=== PATIENT | female | born 1995 | race African-American/Black ===

== ENCOUNTER 2019-02-15 08:37 | Emergency (ER) | payer OTHER ==
[2019-02-15] MEDS ORDERED: LIDOCAINE (PF) 10 MG/ML 5ML AMP SQ STA (09:08)
[2019-02-15] MEDS ORDERED: LIDOCAINE 1% INJ 10MG/ML (20 ML MDV) SQ ONE (09:10)
[2019-02-15] MEDS ORDERED: SULFAMETH-TMP DS STARTER PACK 2 TAB BTL PO STA (09:22)
[2019-02-15] MEDS ORDERED: ACET/COD 300 MG/30 MG STARTER PACK 6 TAB BTL PO STA (09:25)
--- NOTE | 2019-02-15 09:26 | ED ---
General Adult HPI - General Chief complaint: Skin/Abscess/Foreign Body Stated complaint: lump in rt arm pit Time Seen by Provider: 02/15/19 08:57 Source: patient, RN notes reviewed, old records reviewed Mode of arrival: ambulatory Limitations: no limitations - History of Present Illness Initial comments: Patient is a 23-year-old female who presents emergency department today for evaluation for a bump underneath her right axilla. Patient states that she has had no significant fevers or chills. She reports that she's had this bump intermittently for 6 years. She states they have be drained one time prior. Patient relates that she has had no history of resistant skin infections. She states she is not her the diagnosis of hidradenitis a particular. Patient that she has pain in her right axilla with walking when her arms rub over the area. - Related Data Previous Rx's Medication Instructions Recorded Sulfamethox-Tmp 800-160Mg [Bactrim 2 tab PO Q12HR #40 tab 02/15/19 DS 800-160 mg] Allergies Allergy/AdvReac Type Severity Reaction Status Date / Time No Known Allergies Allergy Verified 02/15/19 08:53 Review of Systems ROS Statement: Those systems with pertinent positive or pertinent negative responses have been documented in the HPI. ROS Other: All systems not noted in ROS Statement are negative. Past Medical History Past Medical History: No Reported History History of Any Multi-Drug Resistant Organisms: None Reported Past Surgical History: No Surgical Hx Reported Past Anesthesia/Blood Transfusion Reactions: No Reported Reaction Past Psychological History: No Psychological Hx Reported Smoking Status: Former smoker Past Alcohol Use History: Occasional Past Drug Use History: Marijuana General Exam - General Exam Comments Initial Comments: 23-year-old female. Alert and oriented. No significant distress. Limitations: no limitations Head exam: Present: atraumatic, normocephalic, normal inspection Eye exam: Present: normal appearance, PERRL, EOMI. Absent: scleral icterus, conjunctival injection, periorbital swelling ENT exam: Present: normal exam, mucous membranes moist Neck exam: Present: normal inspection. Absent: tenderness, meningismus, lymphadenopathy Respiratory exam: Present: normal lung sounds bilaterally. Absent: respiratory distress, wheezes, rales, rhonchi, stridor Cardiovascular Exam: Present: regular rate, normal rhythm, normal heart sounds. Absent: systolic murmur, diastolic murmur, rubs, gallop, clicks GI/Abdominal exam: Present: soft, normal bowel sounds. Absent: distended, tenderness, guarding, rebound, rigid Extremities exam: Present: normal inspection, full ROM, normal capillary refill, other (Patient has evidence of abscess over right axilla.). Absent: tenderness, pedal edema, joint swelling, calf tenderness Back exam: Present: normal inspection Neurological exam: Present: alert, oriented X3, CN II-XII intact Psychiatric exam: Present: normal affect, normal mood Skin exam: Present: warm, dry, intact, normal color. Absent: rash Course Vital Signs 02/15/19 08:45 Temperature 97.9 F Pulse Rate 75 Respiratory 16 Rate Blood Pressure 116/77 O2 Sat by Pulse 98 Oximetry Procedures - Incision & Drainage Site: upper extremity (R axilla ) Size (cm): 4 Anesthetic Used: lidocaine 1% Amount (mLs): 5 I&D Cleaning Method: Iodine Sterile Field Used?: Yes Scalpel Used: #11 I&D Drainage Obtained: Pus, Blood Packing: Iodoform Culture Obtained?: Yes Patient Tolerated Procedure: well, no complications Medical Decision Making - Medical Decision Making 23-year-old female persist today with right axilla abscess. She states she's had this happen before. This time Patient has worsening abscess. Patient was anesthetized with lidocaine and surgery was completed. Aerobic culture completed. Patient at this time and has small amount of packing placed. 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 Discussed close follow-up with PCP. We'll discharge the Patient for prescription for Bactrim. Disposition Clinical Impression: Abscess of right axilla, Axillary hidradenitis suppurativa Disposition: HOME SELF-CARE Condition: Good Instructions (If sedation given, give patient instructions): Abscess (ED) Additional Instructions: Patient advised to take antibiotic as prescribed. Apply warm compresses over that area. Return to emergency department if any alarming signs or symptoms occur. Prescriptions: Sulfamethox-Tmp 800-160Mg [Bactrim DS 800-160 mg] 2 tab PO Q12HR #40 tab Is patient prescribed a controlled substance at d/c from ED?: No Referrals: Valdemar Vo DO [Primary Care Provider] - 1-2 days Time of Disposition: 09:25
[2019-02-15 10:08] VITALS: BP 123/79; PULSE 67; RESP 19; TEMP 98.1
== END 2019-02-15 10:07 | disposition home or self-care (01) ==
LOC: EC 08:37
DX: L02.411 Cutaneous abscess of right axilla (principal); L73.2 Hidradenitis suppurativa; Z87.891 Personal history of nicotine dependence
CPT/HCPCS: 99283; 10060; J2001

== ENCOUNTER 2019-02-20 08:16 | Emergency (ER) | payer OTHER ==
[2019-02-20] MEDS ORDERED: LIDOCAINE 1%-EPI 1:100,000 20 ML VIAL SQ STA (08:27)
--- NOTE | 2019-02-20 08:41 | ED ---
General Adult HPI - General Chief complaint: Skin/Abscess/Foreign Body Stated complaint: recheck- lump in armpit Time Seen by Provider: 02/20/19 08:27 Source: patient Mode of arrival: ambulatory Limitations: no limitations - History of Present Illness Initial comments: Dictation was produced using [employer] dictation software. please excuse any grammatical, word or spelling errors. Chief Complaint: 23-year-old female past medical history of hidradenitis presents with persistent right axillary pain. History of Present Illness: She is a 23-year-old female she was seen here in emergency department 5 days ago for the same complaint. Patient was evaluated for axillary abscess. According to documentation attempt was made to I&D the wound however patient reports that no significant purulent fluid was removed. She was discharged with Bactrim on monotherapy. Patient states that her symptoms have not improved at all and she is here back in emergency department for relief. Denies any constitutional symptoms. Patient denies . The ROS documented in this emergency department record has been reviewed and con firmed by me. Those systems with pertinent positive or negative responses have been documented in the HPI. All other systems are other negative and/or noncontributory. PHYSICAL EXAM: General Impression: Alert and oriented x3, not in acute distress HEENT: Normocephalic atraumatic, extra-ocular movements intact, pupils equal and reactive to light bilaterally, mucous membranes moist. Cardiovascular: Heart regular rate and rhythm, S1&S2 audible, no murmurs, rubs or gallops Chest: Lungs clear to auscultation bilaterally, no rhonchi, no wheeze, no rales Abdomen: Bowel sounds present, abdomen soft, non-tender, non-distended, no organomegaly Musculoskeletal: Pulses present and equal in all extremities, no peripheral edema Motor: no focal deficits noted Neurological: CN II-XII grossly intact, no focal motor or sensory deficits noted Skin: Large fluctuant 3 x 3 cm mass in the right axilla Psych: Normal affect and mood ED course: Patient is 23-year-old female presents with right axillary abscess. Vital signs upon arrival shows findings within acceptable limits. [id number] bedside ultrasound was performed showing large fluid collection in the right axilla consistent with large subcutaneous axillary abscess. Incision and drainage was performed at bedside. Due to aspiration was performed with removal of large amounts of purulent fluid. 1 cm incision was made over the abscess with packing of half-inch iodoform gauze. Patient tolerated procedure well. Patient told to continue taking her Bactrim those recently prescribed. Patient also given Keflex 5 days. Patient told to follow up with primary care physician upon discharge. Return parameters discussed. Patient understandable and agreeable with disposition. - Related Data Previous Rx's Medication Instructions Recorded Sulfamethox-Tmp 800-160Mg [Bactrim 2 tab PO Q12HR #40 tab 02/15/19 DS 800-160 mg] Cephalexin [Keflex] 500 mg PO Q6HR 5 Days #20 cap 02/20/19 Allergies Allergy/AdvReac Type Severity Reaction Status Date / Time No Known Allergies Allergy Verified 02/20/19 08:41 Review of Systems ROS Statement: Those systems with pertinent positive or pertinent negative responses have been documented in the HPI. ROS Other: All systems not noted in ROS Statement are negative. Past Medical History Past Medical History: No Reported History History of Any Multi-Drug Resistant Organisms: None Reported Past Surgical History: No Surgical Hx Reported Past Anesthesia/Blood Transfusion Reactions: No Reported Reaction Past Psychological History: No Psychological Hx Reported Smoking Status: Former smoker Past Alcohol Use History: Occasional Past Drug Use History: Marijuana General Exam Limitations: no limitations Course Vital Signs 02/20/19 08:22 Temperature 97.9 F Pulse Rate 73 Respiratory 16 Rate Blood Pressure 109/73 O2 Sat by Pulse 98 Oximetry Procedures - Incision & Drainage Consent Obtained: verbal consent Site: other Anesthetic Used: lidocaine 1%, with epi I&D Cleaning Method: Alcohol Wipe Sterile Field Used?: No Scalpel Used: #11 Needle Aspiration Performed?: Yes Irrigation Performed?: No I&D Drainage Obtained: Pus Packing: Iodoform Culture Obtained?: No Patient Tolerated Procedure: well Disposition Clinical Impression: Abscess Disposition: HOME SELF-CARE Condition: Good Prescriptions: Cephalexin [Keflex] 500 mg PO Q6HR 5 Days #20 cap Is patient prescribed a controlled substance at d/c from ED?: No Referrals: Valdemar Vo DO [Primary Care Provider] - 1-2 days Time of Disposition: 09:26
[2019-02-20 10:17] VITALS: BP 104/60; PULSE 62; RESP 18; TEMP 98.6
== END 2019-02-20 10:15 | disposition home or self-care (01) ==
LOC: EC 08:16
DX: L02.411 Cutaneous abscess of right axilla (principal); Z87.891 Personal history of nicotine dependence
CPT/HCPCS: 10060; 10160; 99283

== ENCOUNTER 2019-03-23 12:15 | Emergency (ER) | payer OTHER ==
[2019-03-23] MEDS ORDERED: LIDOCAINE 1% INJ 10MG/ML (20 ML MDV) SQ ONE (13:10)
[2019-03-23] MEDS ORDERED: SODIUM CHLORIDE 0.9% IRRIG 1,000 ML BTL IRRIGATION ONE (13:10)
--- NOTE | 2019-03-23 13:27 | ED ---
General Adult HPI - General Chief complaint: Skin/Abscess/Foreign Body Stated complaint: Lump under arm Time Seen by Provider: 03/23/19 12:22 Source: patient Mode of arrival: ambulatory Limitations: no limitations - History of Present Illness Initial comments: Patient is a 23-year-old male presenting to emergency Department with chief complaint of right upper pain. Patient reports she noticed a lesion on the right arm. Approximately 1.5 months ago and has been to the emergency department twice to seek help. Patient reports the initial time she was only prescribed medication and the second time the lesion was diagnosed as an abscessed, drained and packed. Patient was also placed an antibiotics. Patient reports the abscess was packed on February 25. Patient reports the packing fell off a she did not return for repacking. Patient reports the pain is increased in severity over the past week and is now an aide every time she attempts any movem ent with her right upper extremity. Patient denies any drainage, erythema or skin discoloration. Patient reports taking [id number] analgesics minimal improvement. Patient denies any fever, chest pain or chest tightness headaches nausea or vomiting. Patient is concerned about a possible and wants to get tested before antibiotics are prescribed. - Related Data Previous Rx's Medication Instructions Recorded Ibuprofen [Motrin] 800 mg PO Q6HR #30 tab 03/23/19 Sulfamethox-Tmp 800-160Mg [Bactrim 1 each PO Q12HR #20 tab 03/23/19 Ds] Allergies Allergy/AdvReac Type Severity Reaction Status Date / Time No Known Allergies Allergy Verified 03/23/19 13:01 Review of Systems ROS Statement: Those systems with pertinent positive or pertinent negative responses have been documented in the HPI. ROS Other: All systems not noted in ROS Statement are negative. Past Medical History Past Medical History: No Reported History History of Any Multi-Drug Resistant Organisms: None Reported Past Surgical History: No Surgical Hx Reported Past Anesthesia/Blood Transfusion Reactions: No Reported Reaction Past Psychological History: No Psychological Hx Reported Smoking Status: Former smoker Past Alcohol Use History: Occasional Past Drug Use History: Marijuana General Exam Limitations: no limitations General appearance: alert, in no apparent distress Head exam: Present: atraumatic, normocephalic, normal inspection Eye exam: Present: normal appearance, PERRL, EOMI Pupils: Present: normal accommodation ENT exam: Present: normal exam, mucous membranes moist, normal external ear exam Neck exam: Present: normal inspection, full ROM Respiratory exam: Present: normal lung sounds bilaterally Cardiovascular Exam: Present: regular rate, normal rhythm, normal heart sounds Extremities exam: Present: full ROM, tenderness (Tenderness with palpation at the right axilla.), normal capillary refill, other (+2 dorsalis pedis and posterior tibialis bilaterally. +2 ulnar radial pulses bilaterally). Absent: normal inspection (Palpable mass noted on the right axilla measuring approximately 2 cm x 3 cm. With 1 cm in diameter of fluctuance. No drainage noted.) Back exam: Present: normal inspection, full ROM Neurological exam: Present: alert, oriented X3 Psychiatric exam: Present: normal affect, normal mood Skin exam: Present: warm, intact, normal color Course Vital Signs 03/23/19 03/23/19 03/23/19 12:16 13:39 16:00 Temperature 98.2 F 98.4 F Pulse Rate 70 76 Respiratory 18 16 16 Rate Blood Pressure 107/67 132/65 O2 Sat by Pulse 98 99 Oximetry Procedures - Incision & Drainage Consent Obtained: verbal consent Indication: Abscess Site: other (Right axilla) Size (cm): 3 Anesthetic Used: lidocaine 1% Amount (mLs): 10 I&D Cleaning Method: Betadine Sterile Field Used?: No Scalpel Used: #11 Needle Aspiration Performed?: No Irrigation Performed?: No I&D Drainage Obtained: Pus, Blood Packing: Plain Culture Obtained?: No Complications: pain Patient Tolerated Procedure: well Medical Decision Making - Medical Decision Making patient is a 23-year-old male presenting to emergency Department with a chief complaint of right armpit pain. Based on physical examination the patient appears to have an abscess in the right axilla. Bedside ultrasound reveals a fluid pocket collection measuring approximately 2 cm x 3.5 cm. the infected region was anesthetized using lidocaine. The abscess was drained using a #11 surgical lip. Blood and pus was removed. Plain packing was placed in the right axilla. Patient will be discharged with Bactrim. Strict return parameters were thoroughly discussed the patient was understanding and agreeable. Patient vised alternate between Tylenol and ibuprofen for pain control. Patient was to follow-up with dermatology considering this is the third time the patient has the abscess in the same region. Case discussed with physician. - Lab Data Lab Results 08/22/19 Range/Units 13:15 Urine HCG, Qual Not Detected (Not Detectd) Disposition Clinical Impression: Abscess of axilla, right Disposition: HOME SELF-CARE Condition: Stable Instructions (If sedation given, give patient instructions): Abscess (ED) Additional Instructions: Please take prescribed medication as directed. Please follow with primary care. Please return to emergency department if symptoms worsen. Prescriptions: Sulfamethox-Tmp 800-160Mg [Bactrim Ds] 1 each PO Q12HR #20 tab Ibuprofen [Motrin] 800 mg PO Q6HR #30 tab Is patient prescribed a controlled substance at d/c from ED?: No Referrals: Valdemar Vo DO [Primary Care Provider] - 1-2 days Dinorah Bruner MD [STAFF PHYSICIAN] - 1-2 days Time of Disposition: 15:43
[2019-03-23 13:41] VITALS: RESP 16
[2019-03-23] MEDS ORDERED: IBUPROFEN 800 MG TAB PO STA (15:53)
[2019-03-23 16:12] VITALS: BP 132/65; PULSE 76; TEMP 98.4
[2019-03-25 08:45] LABS: C. trachomatis,PCR Negative (Neg,Equiv); Chlamydia trachomatis Source Urine; N. gonorrhoeae,PCR Negative (Neg,Equiv); Neisseria Source Urine
== END 2019-03-23 16:00 | disposition home or self-care (01) ==
LOC: EC 12:15
DX: L02.411 Cutaneous abscess of right axilla (principal); Z87.891 Personal history of nicotine dependence
CPT/HCPCS: 81025; 87491; 87591; 99284; 10060; J2001

== ENCOUNTER 2019-06-07 08:25 | Emergency (ER) | payer OTHER ==
[2019-06-07 08:39] VITALS: BP 105/72; PULSE 66; RESP 18; TEMP 97.6
[2019-06-07] MEDS ORDERED: LIDOCAINE 1% INJ 10MG/ML (20 ML MDV) SQ ONE (08:48)
[2019-06-07] MEDS ORDERED: SULFAMETH-TMP DS STARTER PACK 2 TAB BTL PO STA (08:57)
--- NOTE | 2019-06-07 09:01 | ED ---
General Adult HPI - General Chief complaint: Skin/Abscess/Foreign Body Stated complaint: lump in lt armpit Source: patient, RN notes reviewed, old records reviewed Mode of arrival: ambulatory Limitations: no limitations - History of Present Illness Initial comments: Asians a 23-year-old female, she presents emergency Department stay of abscess in her left axilla. Patient reports 3-4 days. She reports she normally has these infections in her right axilla. Patient states that she has not followed with dermatology. She denies any other complaints including fevers or chills. - Related Data Previous Rx's Medication Instructions Recorded Ibuprofen [Motrin] 800 mg PO Q6HR #30 tab 03/23/19 Sulfamethox-Tmp 800-160Mg [Bactrim 1 each PO Q12HR #20 tab 03/23/19 Ds] Sulfamethox-Tmp 800-160Mg [Bactrim 1 tab PO Q12HR #20 tab 06/07/19 DS 800-160 mg] Allergies Allergy/AdvReac Type Severity Reaction Status Date / Time No Known Allergies Allergy Verified 06/07/19 08:35 Review of Systems ROS Statement: Those systems with pertinent positive or pertinent negative responses have been documented in the HPI. ROS Other: All systems not noted in ROS Statement are negative. Past Medical History Past Medical History: No Reported History History of Any Multi-Drug Resistant Organisms: None Reported Past Surgical History: No Surgical Hx Reported Past Anesthesia/Blood Transfusion Reactions: No Reported Reaction Past Psychological History: No Psychological Hx Reported Smoking Status: Former smoker Past Alcohol Use History: Occasional Past Drug Use History: None Reported General Exam - General Exam Comments Initial Comments: 23-year-old female. Alert and oriented. No distress. Limitations: no limitations General appearance: alert, in no apparent distress Head exam: Present: atraumatic, normocephalic, normal inspection Eye exam: Present: normal appearance ENT exam: Present: normal exam, mucous membranes moist Neck exam: Present: normal inspection. Absent: tenderness, meningismus, lymphadenopathy Respiratory exam: Present: normal lung sounds bilaterally. Absent: respiratory distress, wheezes, rales, rhonchi, stridor Cardiovascular Exam: Present: regular rate, normal rhythm, normal heart sounds. Absent: systolic murmur, diastolic murmur, rubs, gallop, clicks GI/Abdominal exam: Present: soft, normal bowel sounds. Absent: distended, tenderness, guarding, rebound, rigid Extremities exam: Present: normal inspection, full ROM, normal capillary refill, other (Patient has an abscess over the left axilla and 3 cm to 2 cm. ). Absent: tenderness, pedal edema, joint swelling, calf tenderness Back exam: Present: normal inspection Psychiatric exam: Present: normal affect, normal mood Course Vital Signs 06/07/19 08:35 Temperature 97.6 F Pulse Rate 66 Respiratory 18 Rate Blood Pressure 105/72 O2 Sat by Pulse 97 Oximetry Procedures - Incision & Drainage Site: upper extremity ( left Axilla) Size (cm): 2 Anesthetic Used: lidocaine 1% Amount (mLs): 3 I&D Cleaning Method: Iodine Sterile Field Used?: Yes Scalpel Used: #11 I&D Drainage Obtained: Pus, Blood Packing: Iodoform Culture Obtained?: Yes Patient Tolerated Procedure: well, no complications Medical Decision Making - Medical Decision Making 23-year-old female presents with an abscess of her left axilla. She has had them previously and her right. This was incised and drained, some purulent fluid and blood was removed the site. Discussed patient's likely having hydradenitis suppurativa she's had persistent abscesses bilateral axilla for the past few months. Patient advised follow up with dermatology. Patient will be started on Bactrim at this time and advised close follow-up with PCP. Questions are answered. Disposition Clinical Impression: Abscess of axilla, left Disposition: HOME SELF-CARE Condition: Good Instructions (If sedation given, give patient instructions): Abscess (ED), Abscess Incision and Drainage (ED) Additional Instructions: Please use medication as discussed. Please follow up with family doctor if symptoms have not improved over the next two days. Please return to the emergency room if your symptoms increase or worsen or for any other concerns. Prescriptions: Sulfamethox-Tmp 800-160Mg [Bactrim DS 800-160 mg] 1 tab PO Q12HR #20 tab Is patient prescribed a controlled substance at d/c from ED?: No Referrals: Valdemar Vo DO [Primary Care Provider] - 1-2 days Dinorah Bruner MD [STAFF PHYSICIAN] - 1-2 days Time of Disposition: 09:32
== END 2019-06-07 09:41 | disposition home or self-care (01) ==
LOC: EC 08:25
DX: L02.412 Cutaneous abscess of left axilla (principal); Z87.891 Personal history of nicotine dependence
CPT/HCPCS: 87070; 87205; 99284; 10060; J2001

== ENCOUNTER → 2019-08-08 | Outpatient (CLI) | payer OTHER ==
[2019-08-08 15:48] LABS: Chol/HDL Ratio 2.9; LDL Cholesterol,Calculated 98.2 mg/dL (0.0-131.0); VLDL Calculation 19.8 mg/dL (5.00-40.00)
[2019-08-08 18:23] LABS: Hemoglobin A1C 5.4 % (4.0-6.0)
[2019-08-08 20:33] LABS: HIV 1 AB Non-Reactive (Non-Reactive); HIV 2 AB Non-Reactive (Non-Reactive); HIV AB P24 Non-Reactive (Non-Reactive); HIV P24 AG Non-Reactive (Non-Reactive)
== END | disposition home or self-care (01) ==
LOC: LABWHC1 09:18
PROVIDERS: ATTEND Nurse Practitioner Family
DX: Z00.00 Encounter for general adult medical examination without abnormal findings (principal); Z11.3 Encounter for screening for infections with a predominantly sexual mode of transmission
CPT/HCPCS: 36415; 80061; 83036; 86780; 87390

== ENCOUNTER 2020-03-17 15:07 | Emergency (ER) | payer OTHER ==
[2020-03-17 15:16] VITALS: BP 113/73; PULSE 91; RESP 18; TEMP 98.9
[2020-03-17] MEDS ORDERED: LIDOCAINE 1% INJ 10MG/ML (20 ML MDV) SQ ONE (15:34)
[2020-03-17] MEDS ORDERED: ACET/COD 300 MG/30 MG STARTER PACK 6 TAB BTL PO STA (15:55)
[2020-03-17] MEDS ORDERED: SULFAMETH-TMP DS STARTER PACK 2 TAB BTL PO STA (15:55)
--- NOTE | 2020-03-17 15:55 | ED ---
General Adult HPI - General Chief complaint: Skin/Abscess/Foreign Body Stated complaint: Lump in armpit Time Seen by Provider: 03/17/20 15:18 Source: patient, RN notes reviewed Mode of arrival: ambulatory Limitations: no limitations - History of Present Illness Initial comments: Patient is a pleasant residual female presenting to emergency Department with complaints of lump left axillary region. Patient noticed this yesterday morning and symptoms worsen today. Patient has had similar episodes approximately 5 times previously and had drained every time. No fevers. Patient has noticed some redness. - Related Data Previous Rx's Medication Instructions Recorded Ibuprofen [Motrin] 800 mg PO Q6HR #30 tab 03/23/19 Sulfamethox-Tmp 800-160Mg [Bactrim 1 each PO Q12HR #20 tab 03/23/19 Ds] Sulfamethox-Tmp 800-160Mg [Bactrim 1 tab PO Q12HR #20 tab 06/07/19 DS 800-160 mg] Sulfamethox-Tmp 800-160Mg [Bactrim 2 each PO Q12HR #40 tab 03/17/20 DS 800-160 mg] Allergies Allergy/AdvReac Type Severity Reaction Status Date / Time No Known Allergies Allergy Verified 03/17/20 15:13 Review of Systems ROS Statement: Those systems with pertinent positive or pertinent negative responses have been documented in the HPI. ROS Other: All systems not noted in ROS Statement are negative. Constitutional: Denies: fever, chills Eyes: Denies: eye pain ENT: Denies: ear pain Respiratory: Denies: cough Cardiovascular: Denies: chest pain Endocrine: Denies: fatigue Gastrointestinal: Denies: abdominal pain Genitourinary: Denies: dysuria Musculoskeletal: Denies: back pain Skin: Reports: as per HPI Neurological: Denies: weakness Past Medical History Past Medical History: No Reported History Additional Past Medical History / Comment(s): cysts History of Any Multi-Drug Resistant Organisms: None Reported Past Surgical History: No Surgical Hx Reported Additional Past Surgical History / Comment(s): I&D of left and right armpits where cysts were present. Past Anesthesia/Blood Transfusion Reactions: No Reported Reaction Past Psychological History: No Psychological Hx Reported Smoking Status: Current every day smoker Past Alcohol Use History: Occasional Past Drug Use History: Marijuana General Exam Limitations: no limitations General appearance: alert, in no apparent distress Head exam: Present: normocephalic Eye exam: Present: normal appearance Neck exam: Present: normal inspection Respiratory exam: Present: normal lung sounds bilaterally Cardiovascular Exam: Present: regular rate, normal rhythm Extremities exam: Present: other (Left axillary with approximately 1 x 3 cm area of swelling and erythema. Minimal fluctuance) Neurological exam: Present: alert Psychiatric exam: Present: normal affect, normal mood Skin exam: Present: normal color Course Vital Signs 03/17/20 15:14 Temperature 98.9 F Pulse Rate 91 Respiratory 18 Rate Blood Pressure 113/73 O2 Sat by Pulse 99 Oximetry Procedures - Incision & Drainage Consent Obtained: verbal consent, written consent Site: other (Axilla, left) Anesthetic Used: lidocaine 1% Amount (mLs): 2 I&D Cleaning Method: Betadine Scalpel Used: #11 I&D Drainage Obtained: Other (Minimal drainage, bloody) Patient Tolerated Procedure: well, no complications Medical Decision Making - Medical Decision Making Patient was advised that procedure may not result in purulent drainage however patient would like procedure done is quite this. It is felt appropriate that there is still a chance of some drainage as well as leaving area opened for further drainage. Disposition Clinical Impression: Axillary hidradenitis suppurativa Disposition: HOME SELF-CARE Condition: Stable Instructions (If sedation given, give patient instructions): Abscess (ED), Abscess Incision and Drainage (DC) Additional Instructions: Prescription sent to pharmacy. Please follow-up with primary care physician in 2 days for recheck. Return for increased pain, swelling, fevers, bleeding, worsening symptoms or other concerns. Prescription is sent to your pharmacy. Prescriptions: Sulfamethox-Tmp 800-160Mg [Bactrim DS 800-160 mg] 2 each PO Q12HR #40 tab Is patient prescribed a controlled substance at d/c from ED?: No Referrals: Valdemar Vo DO [Primary Care Provider] - 1-2 days Time of Disposition: 15:54
== END 2020-03-17 16:03 | disposition home or self-care (01) ==
LOC: EC 15:07
DX: L73.2 Hidradenitis suppurativa (principal); F17.200 Nicotine dependence, unspecified, uncomplicated; Z98.890 Other specified postprocedural states
CPT/HCPCS: 10060; 99283; J2001

== ENCOUNTER 2021-05-06 11:57 | Emergency (ER) | payer OTHER ==
[2021-05-06 12:43] VITALS: TEMP 98.2
[2021-05-06] MEDS ORDERED: SODIUM CHLORIDE 0.9% 1,000 ML IV STA (14:47)
[2021-05-06] MEDS ORDERED: ONDANSETRON 4 MG/2 ML VIAL IVP STA (14:48)
[2021-05-06 15:42] LABS: Appearance,Urine Cloudy (Clear); Bacteria,Urine Many /hpf; Bilirubin,Urine Negative (Negative); Blood,Urine Trace (Negative); Color,Urine Yellow; Glucose,Urine (UA) Negative (Negative); Ketones,Urine Negative (Negative); Leukocyte Esterase,Urine Trace (Negative); Mucus,Urine Rare /hpf; Nitrite,Urine Positive (Negative); PH, Urine 5.5 (5.0-8.0); Protein,Urine Trace (Negative); RBC,Urine 4 /hpf (0-5); Specific Gravity,Urine 1.027 (1.001-1.035); Squamous Epithelial Cell,Urine 9 /hpf (0-4); WBC,Urine 14 /hpf (0-5)
[2021-05-06 15:52] LABS: Basophils % (A) 0 %; Eosinophils # (A) 0.1 k/uL (0-0.7); Eosinophils % (A) 1 %; HCT 32.9 % (34.0-46.0); HGB 10.9 gm/dL (11.4-16.0); Lymphocytes # (A) 0.9 k/uL (1.0-4.8); Lymphocytes % (A) 18 %; MCH 27.2 pg (25.0-35.0); MCV 82.4 fL (80.0-100.0); Mean Platelet Volume 7.8; Monocytes # (A) 0.2 k/uL (0-1.0); Monocytes % (A) 4 %; Neutrophils # (A) 3.6 k/uL (1.3-7.7); Neutrophils % (A) 75 %; Platelet Count 204 k/uL (150-450); RBC 3.99 m/uL (3.80-5.40); RDW 15.6 % (11.5-15.5); WBC 4.8 k/uL (3.8-10.6)
[2021-05-06 16:04] LABS: ALT 15 U/L (4-34); AST 22 U/L (14-36); African American GFR (CKD) >90 (>60 ml/min/1.73 sqM); Albumin 3.5 g/dL (3.5-5.0); Alkaline Phosphatase 50 U/L (38-126); Anion Gap 7 mmol/L; Blood Urea Nitrogen 8 mg/dL (7-17); Calcium 9.1 mg/dL (8.4-10.2); Carbon Dioxide 23 mmol/L (22-30); Chloride 107 mmol/L (98-107); Glucose 107 mg/dL (74-99); Non-African American GFR(CKD) >90 (>60 ml/min/1.73 sqM); Sodium 137 mmol/L (137-145); Total Bilirubin 0.3 mg/dL (0.2-1.3); Total Protein 6.9 g/dL (6.3-8.2)
[2021-05-06] MEDS ORDERED: cefTRIAXone IN SWFI 1,000 MG/10 ML SYRINGE IVP STA (16:05)
--- NOTE | 2021-05-06 16:08 | XR ---
EXAMINATION TYPE: XR chest 2V DATE OF EXAM: 05/06/2021 COMPARISON: None INDICATION: Short of breath,Covid 3 weeks prior TECHNIQUE: Frontal and lateral views of the chest are obtained. FINDINGS: The heart size is normal. The pulmonary vasculature is normal. The lungs are clear. IMPRESSION: 1. No acute pulmonary process.
--- NOTE | 2021-05-06 17:18 | CT ---
EXAMINATION TYPE: CT chest angio for PE DATE OF EXAM: 05/06/2021 COMPARISON: None HISTORY: shortness of breath, elevated d-dimer CT DLP: 383.9 mGycm Automated exposure control for dose reduction was used. CONTRAST: CT Chest for pulmonary embolism performed with with IV Contrast, patient injected with 100 mL of Isov ue 370. FINDINGS: LUNGS: The few scattered reticular/ground glass opacities .There is no suspicious nodules, pleural ef fusion or pneumothorax seen. The tracheobronchial tree is patent. There is mild bronchial wall thick ening. MEDIASTINUM: There is satisfactory enhancement of the pulmonary artery and its branches, there is no CT evidence for pulmonary embolism. There is enlarged right hilar lymph node measuring up to 1.5 cm s hort axis. There are other prominent but nonenlarged.. No pericardial effusion is seen. OTHER: There is a 2 x 1 cm hyperdense area in the left axilla that extends to the skin surface (seri es 4 image 28/116). There is a focal calcification in the right breast. IMPRESSION: 1. No pulmonary embolus. 2. A few scattered reticular/ground with opacities in the lungs and some mild bronchial wall thicken ing is favored to be on the basis of infectious/inflammatory etiology. 3. Enlarged and prominent hilar lymph nodes are likely reactive. 4. There is a 2 x 1 cm hyperdense area in the left axilla through the skin surface. There is a focal calcification in the right breast. Correlate clinically and with mammogram.
--- NOTE | 2021-05-06 17:23 | ED ---
SOB HPI - General Chief Complaint: Shortness of Breath Stated Complaint: SOB, nausea Time Seen by Provider: 05/06/21 14:18 Source: patient Mode of arrival: ambulatory Limitations: no limitations - History of Present Illness Initial Comments: Patient is a 25 year old female who presents emergency Department with reported nausea, vomiting and shortness of breath. Patient states that she was at work today on her break at 10:00 when she began having shortness of breath. She left work and ended up having an episode of vomiting. Denies fevers. No sick contacts similar symptoms. She did have Covid 3 weeks ago. States she's had chronic shortness of breath however it feels worse today. Her primary care doctor did place her on some inhalers. She denies any abdominal pain. No fevers. Denies concern for . No abdominal pain. No changes in her bowel or bladder habits. No other alleviating, presenting or modifying factors - Related Data Home Medications Medication Instructions Recorded Confirmed Albuterol Sulfate [Ventolin HFA] 2 puff INHALATION RT-Q4H PRN 05/06/21 05/06/21 Fluticasone Propionate [Flovent 2 puff INHALATION RT-BID 05/06/21 05/06/21 Hfa 110 mcg] Previous Rx's Medication Instructions Recorded Cephalexin [Keflex] 500 mg PO BID 1 Days #14 cap 05/06/21 Ondansetron Odt [Zofran Odt] 4 mg PO Q8HR PRN #10 tab 05/06/21 Allergies Allergy/AdvReac Type Severity Reaction Status Date / Time No Known Allergies Allergy Verified 05/06/21 16:22 Review of Systems ROS Statement: Those systems with pertinent positive or pertinent negative responses have been documented in the HPI. ROS Other: All systems not noted in ROS Statement are negative. Past Medical History Past Medical History: No Reported History Additional Past Medical History / Comment(s): cysts History of Any Multi-Drug Resistant Organisms: None Reported Past Surgical History: No Surgical Hx Reported Additional Past Surgical History / Comment(s): I&D of left and right armpits where cysts were present. Past Anesthesia/Blood Transfusion Reactions: No Reported Reaction Past Psychological History: No Psychological Hx Reported Smoking Status: Current every day smoker Past Alcohol Use History: Occasional Past Drug Use History: Marijuana General Exam Limitations: no limitations General appearance: alert, in no apparent distress Head exam: Present: atraumatic, normocephalic, normal inspection Eye exam: Present: normal appearance, PERRL, EOMI. Absent: scleral icterus, conjunctival injection, periorbital swelling ENT exam: Present: normal exam, mucous membranes moist Neck exam: Present: normal inspection. Absent: tenderness, meningismus, lymphadenopathy Respiratory exam: Present: normal lung sounds bilaterally. Absent: respiratory distress, wheezes, rales, rhonchi, stridor Cardiovascular Exam: Present: regular rate, normal rhythm, normal heart sounds. Absent: systolic murmur, diastolic murmur, rubs, gallop, clicks GI/Abdominal exam: Present: soft, normal bowel sounds. Absent: distended, tenderness, guarding, rebound, rigid Extremities exam: Present: normal inspection, full ROM, normal capillary refill. Absent: tenderness, pedal edema, joint swelling, calf tenderness Back exam: Present: normal inspection Neurological exam: Present: alert, oriented X3, CN II-XII intact Psychiatric exam: Present: normal affect, normal mood Skin exam: Present: warm, dry, intact, normal color. Absent: rash Course Vital Signs 05/06/21 05/06/21 12:38 18:26 Temperature 98.2 F 98.2 F Pulse Rate 91 90 Respiratory 20 16 Rate Blood Pressure 117/66 129/79 O2 Sat by Pulse 100 98 Oximetry Medical Decision Making - Medical Decision Making The patient is placed into room 7. There are history and physical exam was performed. IV is established and the patient was given a liter bolus of normal saline as well as formal grams of Zofran. Every studies were conducted. Patient provided a urine sample. D-dimer elevated at 1.29. UA positive for nitrates, many bacteria. She is given a dose of Rocephin. Chest x-ray demon strates no acute cardio primary process. She is sent back for a CT of her chest because of the elevated d-dimer. It demonstrates no pulmonary embolism. Few scattered reticular groundglass opacities. These results are discussed the patient. She is resting comfortably at this time. She will be discharged home on Keflex. She'll be given Zofran as needed for nausea. Follow up with her primary care doctor in 2-4 days. Return to the emergency room for any new or worsening symptoms. Patient is discharged home in stable condition - Lab Data Result diagrams: 05/06/21 15:38 05/06/21 15:38 Lab Results 05/06/21 05/06/21 05/06/21 Range/Units 15:28 15:28 15:38 WBC 4.8 (3.8-10.6) k/uL RBC 3.99 (3.80-5.40) m/uL Hgb 10.9 L (11.4-16.0) gm/dL Hct 32.9 L (34.0-46.0) % MCV 82.4 (80.0-100.0) fL MCH 27.2 (25.0-35.0) pg MCHC 33.0 (31.0-37.0) g/dL RDW 15.6 H (11.5-15.5) % Plt Count 204 (150-450) k/uL MPV 7.8 Neutrophils % 75 % Lymphocytes % 18 % Monocytes % 4 % Eosinophils % 1 % Basophils % 0 % Neutrophils # 3.6 (1.3-7.7) k/uL Lymphocytes # 0.9 L (1.0-4.8) k/uL Monocytes # 0.2 (0-1.0) k/uL Eosinophils # 0.1 (0-0.7) k/uL Basophils # 0.0 (0-0.2) k/uL D-Dimer (<0.60) mg/L FEU Sodium (137-145) mmol/L Potassium (3.5-5.1) mmol/L Chloride (98-107) mmol/L Carbon Dioxide (22-30) mmol/L Anion Gap mmol/L BUN (7-17) mg/dL Creatinine (0.52-1.04) mg/dL Est GFR (CKD-EPI)AfAm (>60 ml/min/1.73 sqM) Est GFR (CKD-EPI)NonAf (>60 ml/min/1.73 sqM) Glucose (74-99) mg/dL Plasma Lactic Acid [place] (0.7-2.0) mmol/L Calcium (8.4-10.2) mg/dL Total Bilirubin (0.2-1.3) mg/dL AST (14-36) U/L ALT (4-34) U/L Alkaline Phosphatase (38-126) U/L Total Protein (6.3-8.2) g/dL Albumin (3.5-5.0) g/dL Urine Color Yellow Urine Appearance Cloudy H (Clear) Urine pH 5.5 (5.0-8.0) Ur Specific Orange 1.027 (1.001-1.035) Urine Protein Trace H (Negative) Urine Glucose (UA) Negative (Negative) Urine Ketones Negative (Negative) Urine Blood Trace H (Negative) Urine Nitrite Positive H (Negative) Urine Bilirubin Negative (Negative) Urine Urobilinogen 2.0 (<2.0) mg/dL Ur Leukocyte Esterase Trace H (Negative) Urine RBC 4 (0-5) /hpf Urine WBC 14 H (0-5) /hpf Ur Squamous Epith Cells 9 H (0-4) /hpf Urine Bacteria Many H (None) /hpf Urine Mucus Rare H (None) /hpf Urine HCG, Qual Not Detected (Not Detectd) 05/06/21 05/06/21 05/06/21 Range/Units 15:38 15:38 16:42 WBC (3.8-10.6) k/uL RBC (3.80-5.40) m/uL Hgb (11.4-16.0) gm/dL Hct (34.0-46.0) % MCV (80.0-100.0) fL MCH (25.0-35.0) pg MCHC (31.0-37.0) g/dL RDW (11.5-15.5) % Plt Count (150-450) k/uL MPV Neutrophils % % Lymphocytes % % Monocytes % % Eosinophils % % Basophils % % Neutrophils # (1.3-7.7) k/uL Lymphocytes # (1.0-4.8) k/uL Monocytes # (0-1.0) k/uL Eosinophils # (0-0.7) k/uL Basophils # (0-0.2) k/uL D-Dimer 1.29 H (<0.60) mg/L FEU Sodium 137 (137-145) mmol/L Potassium 4.0 (3.5-5.1) mmol/L Chloride 107 (98-107) mmol/L Carbon Dioxide 23 (22-30) mmol/L Anion Gap 7 mmol/L BUN 8 (7-17) mg/dL Creatinine 0.42 L (0.52-1.04) mg/dL Est GFR (CKD-EPI)AfAm >90 (>60 ml/min/1.73 sqM) Est GFR (CKD-EPI)NonAf >90 (>60 ml/min/1.73 sqM) Glucose 107 H (74-99) mg/dL Plasma Lactic Acid [place] 1.1 (0.7-2.0) mmol/L Calcium 9.1 (8.4-10.2) mg/dL Total Bilirubin 0.3 (0.2-1.3) mg/dL AST 22 (14-36) U/L ALT 15 (4-34) U/L Alkaline Phosphatase 50 (38-126) U/L Total Protein 6.9 (6.3-8.2) g/dL Albumin 3.5 (3.5-5.0) g/dL Urine Color Urine Appearance (Clear) Urine pH (5.0-8.0) Ur Specific [place] (1.001-1.035) Urine Protein (Negative) Urine Glucose (UA) (Negative) Urine Ketones (Negative) Urine Blood (Negative) Urine Nitrite (Negative) Urine Bilirubin (Negative) Urine Urobilinogen (<2.0) mg/dL Ur Leukocyte Esterase (Negative) Urine RBC (0-5) /hpf Urine WBC (0-5) /hpf Ur Squamous Epith Cells (0-4) /hpf Urine Bacteria (None) /hpf Urine Mucus (None) /hpf Urine HCG, Qual (Not Detectd) - EKG Data EKG Comments: EKG demonstrates a sinus rhythm with ventricular rate 72. FL 146. QRS 72. QTC of 427. No acute ST segment elevations or depressions Disposition Clinical Impression: Nausea and vomiting, Acute UTI, Acute respiratory insufficiency Disposition: HOME SELF-CARE Condition: Stable Instructions (If sedation given, give patient instructions): Urinary Tract Infection in Women (ED) Additional Instructions: Please follow up with your primary care doctor in 2-4 days. Take the antibiotic as directed. Use of Zofran for nausea. Return to the emergency room for any new or worsening symptoms Prescriptions: Cephalexin [Keflex] 500 mg PO BID 1 Days #14 cap Ondansetron Odt [Zofran Odt] 4 mg PO Q8HR PRN #10 tab PRN Reason: Nausea Is patient prescribed a controlled substance at d/c from ED?: No Referrals: Valdemar Vo DO [Primary Care Provider] - 1-2 days Time of Disposition: 17:33
[2021-05-06 18:26] VITALS: BP 129/79; PULSE 90; RESP 16
== END 2021-05-06 18:26 | disposition home or self-care (01) ==
LOC: EC 11:57
DX: R06.89 Other abnormalities of breathing (principal); N39.0 Urinary tract infection, site not specified; R11.2 Nausea with vomiting, unspecified; F17.200 Nicotine dependence, unspecified, uncomplicated
CPT/HCPCS: 36415; 93005; 85379; 80053; 83605; 85025; 81001; 81025; 71046; 71275; 99284; 96374; 96375; J2405; J0696; Q9967

== ENCOUNTER 2021-05-14 07:15 | Emergency (ER) | payer OTHER ==
[2021-05-14 07:32] VITALS: BP 103/71; PULSE 71; RESP 19; TEMP 98.1
[2021-05-14] MEDS ORDERED: MORPHINE SULFATE 2 MG/ML SYRINGE IVP STA (07:35)
[2021-05-14] MEDS ORDERED: SODIUM CHLORIDE 0.9% 1,000 ML IV STA (07:35)
[2021-05-14] MEDS ORDERED: ONDANSETRON 4 MG/2 ML VIAL IVP STA (07:35)
[2021-05-14 08:17] LABS: Basophils % (A) 0 %; Eosinophils % (A) 1 %; HGB 12.1 gm/dL (11.4-16.0); Lymphocytes # (A) 1.6 k/uL (1.0-4.8); Lymphocytes % (A) 42 %; MCH 26.4 pg (25.0-35.0); MCHC 31.9 g/dL (31.0-37.0); MCV 82.7 fL (80.0-100.0); Mean Platelet Volume 7.4; Monocytes # (A) 0.3 k/uL (0-1.0); Monocytes % (A) 7 %; Neutrophils # (A) 1.9 k/uL (1.3-7.7); Neutrophils % (A) 48 %; Platelet Count 225 k/uL (150-450); RDW 15.1 % (11.5-15.5); WBC 3.9 k/uL (3.8-10.6)
[2021-05-14 08:34] LABS: ALT 13 U/L (4-34); AST 27 U/L (14-36); African American GFR (CKD) >90 (>60 ml/min/1.73 sqM); Albumin 4.1 g/dL (3.5-5.0); Alkaline Phosphatase 62 U/L (38-126); Amylase 76 U/L (30-110); Anion Gap 11 mmol/L; Blood Urea Nitrogen 10 mg/dL (7-17); Calcium 9.4 mg/dL (8.4-10.2); Carbon Dioxide 18 mmol/L (22-30); Chloride 109 mmol/L (98-107); Glucose 91 mg/dL (74-99); Lipase 70 U/L (23-300); Non-African American GFR(CKD) >90 (>60 ml/min/1.73 sqM); Sodium 138 mmol/L (137-145); Total Bilirubin 0.6 mg/dL (0.2-1.3); Total Protein 7.8 g/dL (6.3-8.2)
[2021-05-14 08:37] LABS: Appearance,Urine Clear (Clear); Bilirubin,Urine Negative (Negative); Blood,Urine Negative (Negative); Color,Urine Yellow; Glucose,Urine (UA) Negative (Negative); Ketones,Urine 2+ (Negative); Leukocyte Esterase,Urine Negative (Negative); Nitrite,Urine Negative (Negative); Protein,Urine Trace (Negative); Urobilinogen,Urine <2.0 mg/dL (<2.0)
[2021-05-14 08:49] LABS: Potassium 4.1 mmol/L (3.5-5.1)
--- NOTE | 2021-05-14 09:30 | CT ---
EXAMINATION TYPE: CT abdomen pelvis wo con DATE OF EXAM: 05/14/2021 COMPARISON: None HISTORY: Pelvic pain CT DLP: 825.9 mGycm Automated exposure control for dose reduction was used. TECHNIQUE: Helical acquisition of images from the lung bases through the pelvis. FINDINGS: Lack of intravenous contrast could compromise sensitivity of the exam. There is a tampon in place. Small umbilical hernia contains fat. LUNG BASES: No significant abnormality is appreciated. AORTA: No significant abnormality is appreciated. LIVER/GB: No significant abnormality is appreciated. PANCREAS: No significant abnormality is seen. SPLEEN: No significant abnormality is seen. ADRENALS: No significant abnormality is seen. KIDNEYS: No significant abnormality is seen. REPRODUCTIVE ORGANS: No significant abnormality is seen. URINARY BLADDER: No significant abnormality is seen. BOWEL: Retained fecal debris is present throughout the distribution of the colon. Some scattered phl eboliths are present within the pelvis. The appendix shows some luminal air and some mild high dense material, no inflammatory change and crosses midline to the left lower quadrant. FREE AIR: No Free Air is visible. ASCITES: None visible. PELVIC ADENOPATHY: None visualized. RETROPERITONEAL ADENOPATHY: No Retroperitoneal Adenopathy visible. OSSEOUS STRUCTURES: No significant abnormality is seen. IMPRESSION: NONCONTRAST EXAM. CORRELATE FOR FECAL STASIS. ADDITIONAL FINDINGS ABOVE.
--- NOTE | 2021-05-14 09:57 | ED ---
General Adult HPI - General Chief complaint: Shortness of Breath Stated complaint: SOB Time Seen by Provider: 05/14/21 07:23 Source: patient, EMS, RN notes reviewed Mode of arrival: EMS Limitations: no limitations - History of Present Illness Initial comments: Patient is a 25-year-old female that presents to the emergency department complaining of generalized abdominal pain or discomfort. She arrived via EMS complaining of shortness of breath resolved. Nurse reported upon triage that patient started complaining of abdominal pain, patient was 100% on room air. Patient didn't appear to be mildly uncomfortable. She denied being . Her she denied any alleviating or aggravating factors. She does been going on constantly since this morning. She was otherwise well. She denied chest pain shortness of breath headache nausea vomiting diarrhea constipation fever fatigue chills. - Related Data Home Medications Medication Instructions Recorded Confirmed Albuterol Sulfate [Ventolin HFA] 2 puff INHALATION RT-Q4H PRN 05/06/21 05/06/21 Fluticasone Propionate [Flovent 2 puff INHALATION RT-BID 05/06/21 05/06/21 Hfa 110 mcg] Previous Rx's Medication Instructions Recorded Cephalexin [Keflex] 500 mg PO BID 1 Days #14 cap 05/06/21 Ondansetron Odt [Zofran Odt] 4 mg PO Q8HR PRN #10 tab 05/06/21 Allergies Allergy/AdvReac Type Severity Reaction Status Date / Time No Known Allergies Allergy Verified 05/14/21 09:58 Review of Systems ROS Statement: Those systems with pertinent positive or pertinent negative responses have been documented in the HPI. ROS Other: All systems not noted in ROS Statement are negative. Past Medical History Past Medical History: No Reported History Additional Past Medical History / Comment(s): cysts History of Any Multi-Drug Resistant Organisms: None Reported Past Surgical History: No Surgical Hx Reported Additional Past Surgical History / Comment(s): I&D of left and right armpits where cysts were present. Past Anesthesia/Blood Transfusion Reactions: No Reported Reaction Past Psychological History: No Psychological Hx Reported Smoking Status: Current every day smoker Past Alcohol Use History: Occasional Past Drug Use History: Marijuana General Exam Limitations: no limitations General appearance: alert, in no apparent distress, obese Head exam: Present: atraumatic, normocephalic, normal inspection Eye exam: Present: normal appearance, PERRL, EOMI. Absent: scleral icterus, conjunctival injection, periorbital swelling ENT exam: Present: normal exam, mucous membranes moist Neck exam: Present: normal inspection Respiratory exam: Present: normal lung sounds bilaterally. Absent: respiratory distress, wheezes, rales, rhonchi, stridor Cardiovascular Exam: Present: regular rate, normal rhythm, normal heart sounds. Absent: systolic murmur, diastolic murmur, rubs, gallop, clicks GI/Abdominal exam: Present: soft, tenderness (All quadrants, no point tenderness.), normal bowel sounds. Absent: distended, guarding, rebound, rigid Extremities exam: Present: normal inspection, full ROM, normal capillary refill. Absent: tenderness, pedal edema, joint swelling, calf tenderness Neurological exam: Present: alert, oriented X3 Psychiatric exam: Present: normal affect, normal mood Skin exam: Present: warm, dry, intact, normal color. Absent: rash Course Vital Signs 05/14/21 07:24 Temperature 98.1 F Pulse Rate 71 Respiratory 19 Rate Blood Pressure 103/71 O2 Sat by Pulse 100 Oximetry Medical Decision Making - Medical Decision Making 25-year-old female complaining of generalized abdominal pain and shortness of breath, 100% on room air. Labs, CT the abdomen and pelvis, 1 L normal saline, 4 mg Zofran, 4 g morphine ordered. Labs unremarkable and within normal limits. CT abdomen pelvis shows fecal stasis throughout the colon. Patient most likely has constipation. Case discussed with Dr. Maki, patient discharge home with follow-up to primary care. - Lab Data Result diagrams: 05/14/21 08:07 05/14/21 08:07 Lab Results 05/14/21 05/14/21 05/14/21 Range/Units 08:07 08:07 08:07 WBC 3.9 (3.8-10.6) k/uL RBC 4.60 (3.80-5.40) m/uL Hgb 12.1 (11.4-16.0) gm/dL Hct 38.0 (34.0-46.0) % MCV 82.7 (80.0-100.0) fL MCH 26.4 (25.0-35.0) pg MCHC 31.9 (31.0-37.0) g/dL RDW 15.1 (11.5-15.5) % Plt Count 225 (150-450) k/uL MPV 7.4 Neutrophils % 48 % Lymphocytes % 42 % Monocytes % 7 % Eosinophils % 1 % Basophils % 0 % Neutrophils # 1.9 (1.3-7.7) k/uL Lymphocytes # 1.6 (1.0-4.8) k/uL Monocytes # 0.3 (0-1.0) k/uL Eosinophils # 0.0 (0-0.7) k/uL Basophils # 0.0 (0-0.2) k/uL Sodium (137-145) mmol/L Potassium (3.5-5.1) mmol/L Chloride (98-107) mmol/L Carbon Dioxide (22-30) mmol/L Anion Gap mmol/L BUN (7-17) mg/dL Creatinine (0.52-1.04) mg/dL Est GFR (CKD-EPI)AfAm (>60 ml/min/1.73 sqM) Est GFR (CKD-EPI)NonAf (>60 ml/min/1.73 sqM) Glucose (74-99) mg/dL Calcium (8.4-10.2) mg/dL Total Bilirubin (0.2-1.3) mg/dL AST (14-36) U/L ALT (4-34) U/L Alkaline Phosphatase (38-126) U/L Total Protein (6.3-8.2) g/dL Albumin (3.5-5.0) g/dL Amylase (30-110) U/L Lipase (23-300) U/L Urine Color Yellow Urine Appearance Clear (Clear) Urine pH 6.0 (5.0-8.0) Ur Specific [place] 1.030 (1.001-1.035) Urine Protein Trace H (Negative) Urine Glucose (UA) Negative (Negative) Urine Ketones 2+ H (Negative) Urine Blood Negative (Negative) Urine Nitrite Negative (Negative) Urine Bilirubin Negative (Negative) Urine Urobilinogen <2.0 (<2.0) mg/dL Ur Leukocyte Esterase Negative (Negative) Urine HCG, Qual Not Detected (Not Detectd) 05/14/21 Range/Units 08:07 WBC (3.8-10.6) k/uL RBC (3.80-5.40) m/uL Hgb (11.4-16.0) gm/dL Hct (34.0-46.0) % MCV (80.0-100.0) fL MCH (25.0-35.0) pg MCHC (31.0-37.0) g/dL RDW (11.5-15.5) % Plt Count (150-450) k/uL MPV Neutrophils % % Lymphocytes % % Monocytes % % Eosinophils % % Basophils % % Neutrophils # (1.3-7.7) k/uL Lymphocytes # (1.0-4.8) k/uL Monocytes # (0-1.0) k/uL Eosinophils # (0-0.7) k/uL Basophils # (0-0.2) k/uL Sodium 138 (137-145) mmol/L Potassium 4.1 (3.5-5.1) mmol/L Chloride 109 H (98-107) mmol/L Carbon Dioxide 18 L (22-30) mmol/L Anion Gap 11 mmol/L BUN 10 (7-17) mg/dL Creatinine 0.47 L (0.52-1.04) mg/dL Est GFR (CKD-EPI)AfAm >90 (>60 ml/min/1.73 sqM) Est GFR (CKD-EPI)NonAf >90 (>60 ml/min/1.73 sqM) Glucose 91 (74-99) mg/dL Calcium 9.4 (8.4-10.2) mg/dL Total Bilirubin 0.6 (0.2-1.3) mg/dL AST 27 (14-36) U/L ALT 13 (4-34) U/L Alkaline Phosphatase 62 (38-126) U/L Total Protein 7.8 (6.3-8.2) g/dL Albumin 4.1 (3.5-5.0) g/dL Amylase 76 (30-110) U/L Lipase 70 (23-300) U/L Urine Color Urine Appearance (Clear) Urine pH (5.0-8.0) Ur Specific [place] (1.001-1.035) Urine Protein (Negative) Urine Glucose (UA) (Negative) Urine Ketones (Negative) Urine Blood (Negative) Urine Nitrite (Negative) Urine Bilirubin (Negative) Urine Urobilinogen (<2.0) mg/dL Ur Leukocyte Esterase (Negative) Urine HCG, Qual (Not Detectd) - Radiology Data Radiology results: report reviewed, image reviewed CT of the abdomen and pelvis: Retained fecal debris is present at the distribution: Some scattered phleboliths are present within the pelvis. The appendix shows some luminal air in some mild high dense material no inflammatory change and crosses midline to the left lower quadrant. Disposition Clinical Impression: Abdominal pain, Constipation Disposition: HOME SELF-CARE Condition: Stable Instructions (If sedation given, give patient instructions): Abdominal Pain (ED) Additional Instructions: Please return to the Emergency Department if symptoms worsen or any other c oncerns. Follow-up with primary care 1-2 days. Increase oral fluids, increase dietary fiber. Is patient prescribed a controlled substance at d/c from ED?: No Referrals: Valdemar Vo DO [Primary Care Provider] - 1-2 days Time of Disposition: 10:09
== END 2021-05-14 11:02 | disposition home or self-care (01) ==
LOC: EC 07:15
DX: K59.00 Constipation, unspecified (principal); R06.02 Shortness of breath; F17.200 Nicotine dependence, unspecified, uncomplicated
CPT/HCPCS: 36415; 80053; 82150; 83690; 85025; 81003; 81025; 74176; 99285; 96374; 96375; 96361; J2405; J2270

== ENCOUNTER → 2021-05-30 | Outpatient (CLI) | payer OTHER ==
--- NOTE | 2021-05-30 11:38 | MM ---
Reason for exam: clinical finding. Baseline mammogram. History: Took hormonal contraceptives for 6 years beginning at age 14. Physical Findings: Nurse did not find any significant physical abnormalities on exam. [facility] Diagnostic Mammo w CAD EDWIN Bilateral CC and MLO view(s) were taken. No prior studies available for comparison. The breast tissue is heterogeneously dense. This may lower the sensitivity of mammography. There is no discrete abnormality. These results were verbally communicated with the patient and result sheet given to the patient on 05/30/21. ASSESSMENT: Benign, BI-RAD 2 RECOMMENDATION: Routine screening mammogram of both breasts at age 33. Manage patient on a clinical basis.
== END | disposition home or self-care (01) ==
LOC: RADMAMWWP 08:44
PROVIDERS: ATTEND Family Medicine
DX: N64.89 Other specified disorders of breast (principal)
CPT/HCPCS: 77066

== ENCOUNTER 2021-07-18 02:22 | Emergency (ER) | payer OTHER ==
[2021-07-18 02:30] VITALS: BP 111/61; PULSE 70; RESP 18; TEMP 97.9
--- NOTE | 2021-07-18 03:19 | ED ---
Extremity Problem HPI - General Chief complaint: Extremity Problem,Nontraumatic Stated complaint: right arm numbness, I[facility] Time Seen by Provider: 07/18/21 02:23 Source: patient, RN notes reviewed, old records reviewed Mode of arrival: ambulatory Limitations: no limitations - History of Present Illness Initial comments: This is a 26-year-old female to the emergency department today. She presents today for evaluation regards to right wrist pain special with movement wakes up at night is when she notices it to be the worse. Patient does do repetitive motions of late with her right hand and left hands well. She is right-handed MD Complaint: extremity pain, extremity swelling, joint pain (Right wrist) -: days(s) Location: right, upper extremity History of Same: No -: Yes arthralgia Radiation: proximal Severity scale (1-10): 6 Quality: stabbing, sharp Consistency: intermittent Improves with: nothing Worsens with: nothing Associated Symptoms: denies other symptoms - Related Data Home Medications Medication Instructions Recorded Confirmed Albuterol Sulfate [Ventolin HFA] 2 puff INHALATION RT-Q4H PRN 05/06/21 05/14/21 Allergies Allergy/AdvReac Type Severity Reaction Status Date / Time latex Allergy Unknown Verified 07/18/21 02:31 Review of Systems ROS Statement: Those systems with pertinent positive or pertinent negative responses have been documented in the HPI. ROS Other: All systems not noted in ROS Statement are negative. Past Medical History Past Medical History: No Reported History Additional Past Medical History / Comment(s): cysts History of Any Multi-Drug Resistant Organisms: None Reported Past Surgical History: No Surgical Hx Reported Additional Past Surgical History / Comment(s): I&D of left and right armpits where cysts were present. Past Anesthesia/Blood Transfusion Reactions: No Reported Reaction Past Psychological History: No Psychological Hx Reported Smoking Status: Current every day smoker Past Alcohol Use History: Occasional Past Drug Use History: Marijuana General Exam Limitations: no limitations General appearance: alert, in no apparent distress Head exam: Present: atraumatic, normocephalic, normal inspection Eye exam: Present: normal appearance, PERRL, EOMI. Absent: scleral icterus, conjunctival injection, periorbital swelling ENT exam: Present: normal exam, mucous membranes moist Neck exam: Present: normal inspection. Absent: tenderness, meningismus, lymphadenopathy Respiratory exam: Present: normal lung sounds bilaterally. Absent: respiratory distress, wheezes, rales, rhonchi, stridor Cardiovascular Exam: Present: regular rate, normal rhythm, normal heart sounds. Absent: systolic murmur, diastolic murmur, rubs, gallop, clicks GI/Abdominal exam: Present: soft, normal bowel sounds. Absent: distended, tenderness, guarding, rebound, rigid Extremities exam: Present: normal inspection, full ROM, normal capillary refill, other (Mild right wrist tenderness to movement, positive now signed positive Phalen). Absent: tenderness, pedal edema, joint swelling, calf tenderness Back exam: Present: normal inspection Neurological exam: Present: alert, oriented X3, CN II-XII intact Psychiatric exam: Present: normal affect, normal mood Skin exam: Present: warm, dry, intact, normal color. Absent: rash Course Vital Signs 07/18/21 02:27 Temperature 97.9 F Pulse Rate 70 Respiratory 18 Rate Blood Pressure 111/61 O2 Sat by Pulse 99 Oximetry - Reevaluation(s) Reevaluation #1: 07/18/21 03:16 Medical record is reviewed Reevaluation #2: 07/18/21 03:16 Patient no distress here in the emergency department Reevaluation #3: 07/18/21 03:16 Patient informed results and questions answered Medical Decision Making - Medical Decision Making 26 Female with normal signs and symptoms of carpal tunnel the right wrist mild. Patient has no atrophy, encouraged to wear splint at night return to work with anti-inflammatories Disposition Clinical Impression: Right carpal tunnel syndrome Disposition: HOME SELF-CARE Condition: Good Instructions (If sedation given, give patient instructions): Paresthesia (ED) Is patient prescribed a controlled substance at d/c from ED?: No Referrals: Valdemar Vo DO [Primary Care Provider] - 1-2 days
== END 2021-07-18 03:32 | disposition home or self-care (01) ==
LOC: EC 02:22
DX: G56.01 Carpal tunnel syndrome, right upper limb (principal); F17.200 Nicotine dependence, unspecified, uncomplicated; Z91.040 Latex allergy status
CPT/HCPCS: 99283

== ENCOUNTER 2022-04-02 16:07 | Emergency (ER) | payer OTHER ==
[2022-04-02 16:18] VITALS: BP 116/71; PULSE 96; RESP 16; TEMP 98.6
--- NOTE | 2022-04-02 18:38 | ED ---
URI HPI - General Chief Complaint: Upper Respiratory Infection Stated Complaint: coughing, drainage Time Seen by Provider: 04/02/22 18:21 Source: patient Mode of arrival: ambulatory - History of Present Illness Initial Comments: Patient is a 26-year-old female presenting with chief complaint of cough and congestion. Patient states that 4 days ago she began having fatigue, body aches, congestion. She states that yesterday she felt better and was able to go to work. Patient states that when she woke up this morning she felt worse and presented for Covid testing. She denies any chest pain, shortness of breath, fever, chills, nausea, vomiting, abdominal pain, sore throat, dysphasia, headache, neck pain or stiffness. - Related Data Home Medications Medication Instructions Recorded Confirmed Albuterol Sulfate [Ventolin HFA] 2 puff INHALATION RT-Q4H PRN 05/06/21 05/14/21 Allergies Allergy/AdvReac Type Severity Reaction Status Date / Time latex Allergy Unknown Verified 04/02/22 16:18 Review of Systems ROS Statement: Those systems with pertinent positive or pertinent negative responses have been documented in the HPI. ROS Other: All systems not noted in ROS Statement are negative. Past Medical History Past Medical History: No Reported History Additional Past Medical History / Comment(s): cysts History of Any Multi-Drug Resistant Organisms: None Reported Past Surgical History: No Surgical Hx Reported Additional Past Surgical History / Comment(s): I&D of left and right armpits where cysts were present. Past Anesthesia/Blood Transfusion Reactions: No Reported Reaction Past Psychological History: No Psychological Hx Reported Smoking Status: Current every day smoker Past Alcohol Use History: Occasional Past Drug Use History: Marijuana General Exam Limitations: no limitations Head exam: Present: atraumatic, normocephalic, normal inspection Eye exam: Present: normal appearance, EOMI. Absent: scleral icterus, periorbital swelling ENT exam: Present: normal exam Neck exam: Present: normal inspection, full ROM Respiratory exam: Present: normal lung sounds bilaterally. Absent: respiratory distress, wheezes, rales, rhonchi, stridor Cardiovascular Exam: Present: regular rate, normal rhythm, normal heart sounds. Absent: systolic murmur, diastolic murmur, rubs, gallop, clicks Neurological exam: Present: alert, oriented X3, CN II-XII intact Psychiatric exam: Present: normal affect, normal mood Skin exam: Present: warm, dry, intact, normal color. Absent: rash Course Vital Signs 04/02/22 16:12 Temperature 98.6 F Pulse Rate 96 Respiratory 16 Rate Blood Pressure 116/71 O2 Sat by Pulse 99 Oximetry Medical Decision Making - Medical Decision Making Patient is a 18-year-old female presenting with chief complaint of fatigue, cough, congestion. Patient symptoms started 4 days ago, however yesterday she felt much better and today she woke up with worsening symptoms. Examination is unremarkable. Patient tested positive for Covid. I discussed quarantine guidelines and supportive treatment. Follow-up with PCP. Report back to ER with any new or worsening symptoms. Discussed return parameters and answered all questions. Patient conveyed verbal understanding and agreed to the plan. I discussed this case with my attending Dr. Church. - Lab Data Lab Results 04/02/22 Range/Units 16:22 Coronavirus (PCR) Detected A (Not Detectd) Disposition Clinical Impression: COVID Disposition: HOME SELF-CARE Condition: Good Instructions (If sedation given, give patient instructions): COVID-19 (Coronavirus Disease 2019) (ED), How to Recover from COVID-19 at Home (ED) Additional Instructions: Quarantine for 5 days starting from the first if symptoms. If after 5 days you are symptom and fever free, wear a well fitted mask while in public at all times for an additional 5 days. If you are not symptom or fever free, continue your quarantine until you're without symptoms or fever for 24 hours. Take Motrin and Tylenol as needed for fever and pain control. Take Mucinex as needed. Report back to ER if any new or worsening symptoms occur. Follow-up with PCP. Is patient prescribed a controlled substance at d/c from ED?: No Referrals: Valdemar Vo DO [Primary Care Provider] - 1-2 days Time of Disposition: 18:38
== END 2022-04-02 19:01 | disposition home or self-care (01) ==
LOC: EC 16:07
DX: U07.1 COVID-19 (principal); F17.200 Nicotine dependence, unspecified, uncomplicated; Z91.040 Latex allergy status
CPT/HCPCS: 87635; 99284

== ENCOUNTER 2022-08-01 21:43 | Emergency (ER) | payer OTHER ==
[2022-08-01 22:20] VITALS: BP 112/73; PULSE 94; RESP 18; TEMP 98.8
[2022-08-02] MEDS ORDERED: DEXAMETHASONE SOD PHOSPHATE 10 MG/ML 1 ML VIAL PO STA (00:16)
--- NOTE | 2022-08-02 00:24 | ED ---
General Adult HPI - General Chief complaint: Upper Respiratory Infection Stated complaint: congestion,eye irritation Time Seen by Provider: 08/01/22 23:54 Source: patient, RN notes reviewed Mode of arrival: ambulatory Limitations: no limitations - History of Present Illness Initial comments: 27-year-old female presents to the emergency Department with complaints of upper respiratory infection symptoms x one week. States symptoms have worsened over the past 2 days and include sore throat, nasal congestion, and sinus pressure. Reports mild cough. Has not taken anything to treat her symptoms. No know sick contacts. Denies fever, chills, dizziness, chest pain, shortness of breath, abdominal pain, nausea, vomiting, diarrhea, dysuria, or appetite changes. - Related Data Home Medications Medication Instructions Recorded Confirmed Albuterol Sulfate [Ventolin HFA] 2 puff INHALATION RT-Q4H PRN 05/06/21 05/14/21 Previous Rx's Medication Instructions Recorded Amoxic-Pot Clav 875-125Mg 1 tab PO BID 7 Days #14 tab 08/02/22 [Augmentin 875-125] Fluticasone Nasal [place] [Flonase 2 spray EA NOSTRIL DAILY 5 Days 08/02/22 Nasal [place]] #16 gm Amoxicillin 875 mg PO Q12HR #20 tablet 08/03/22 predniSONE [Deltasone] 20 mg PO BID #10 tab 08/03/22 Allergies Allergy/AdvReac Type Severity Reaction Status Date / Time latex Allergy Unknown Verified 08/03/22 21:19 Review of Systems ROS Statement: Those systems with pertinent positive or pertinent negative responses have been documented in the HPI. ROS Other: All systems not noted in ROS Statement are negative. Past Medical History Past Medical History: No Reported History Additional Past Medical History / Comment(s): cysts History of Any Multi-Drug Resistant Organisms: None Reported Past Surgical History: No Surgical Hx Reported Additional Past Surgical History / Comment(s): I&D of left and right armpits where cysts were present. Past Anesthesia/Blood Transfusion Reactions: No Reported Reaction Past Psychological History: No Psychological Hx Reported Smoking Status: Current every day smoker Past Alcohol Use History: Occasional Past Drug Use History: Marijuana General Exam Limitations: no limitations General appearance: alert, in no apparent distress Head exam: Present: normocephalic, other (Tenderness upon palpation over frontal and maxillary sinuses) Eye exam: Present: normal appearance, PERRL, EOMI, other (No discharge or dr siddiqi). Absent: scleral icterus, conjunctival injection, periorbital swelling, periorbital tenderness ENT exam: Present: mucous membranes moist, TM's normal bilaterally Expanded Mouth exam: Present: normal external inspection Throat exam: tonsillomegaly. negative: tonsillar erythema, tonsillar exudate Neck exam: Present: normal inspection, full ROM. Absent: lymphadenopathy Respiratory exam: Present: normal lung sounds bilaterally. Absent: respiratory distress, wheezes, rales, rhonchi, stridor, chest wall tenderness Cardiovascular Exam: Present: regular rate, normal rhythm, normal heart sounds. Absent: systolic murmur, diastolic murmur, rubs, gallop, clicks GI/Abdominal exam: Present: soft, normal bowel sounds. Absent: distended, tenderness, guarding, rebound, rigid Neurological exam: Present: alert, oriented X3, normal gait Course Vital Signs 08/01/22 22:19 Temperature 98.8 F Pulse Rate 94 Respiratory 18 Rate Blood Pressure 112/73 O2 Sat by Pulse 98 Oximetry - Reevaluation(s) Reevaluation #1: 08/02/22 00:15 Patient updated on laboratory findings. Explained that this most likely viral, however given that she is nearing 1 week of sinus symptoms, she was offered an antibiotic which she preferred. Encouraged to use nasal steroid and decongestant to reduce congestion. Medical Decision Making - Medical Decision Making 27-year-old female presents to the emergency Department with complaints of sinus congestion and URI symptoms 1 week. Upon exam, patient is well-appearing and in no acute distress. Physical exam findings are unremarkable. Viral swabs are negative. Vital signs are stable. However given duration of symptoms, and worsening of illness, patient will be prescribed an antibiotic and treated for sinusitis. Encouraged to manage symptomatically as well. Return parameters discussed in detail. Patient verbalizes understanding and agrees with this plan. Attending: Paresh Was pt. sent in by a medical professional or institution? @ -No Did you speak to anyone other than the patient for history? @ -No Did you review nursing and triage notes? @ -Yes, agree Were old charts reviewed? @ -No Differential Diagnosis? @ -Viral URI, sinusitis, conjunctivitis, pharyngitis, this is not meant to be an exhaustive list EKG interpreted by me (3pts min.)? @ -Not applicable X-rays interpreted by me (1pt min.)? @ -Not applicable CT interpreted by me (1pt min.)? @ -Not applicable U/S interpreted by me (1pt. min.)? @ -Not applicable What testing was considered but not performed? (CT, X-rays, U/S, labs)? Why? @ -None What meds were considered but not given? Why? @ -None Did you discuss the management of the patient with other professionals? @ -None Did you reconcile home meds? @ -No Was smoking cessation discussed for >3mins.? @ -No Was critical care preformed (if so, how long)? @ -No Were there social determinants of health that impacted care today? How? (Homelessness, low income, unemployed, alcoholism, drug addiction, transportation, low edu. Level, literacy, decrease access to med. care, [facility], rehab)? @ -No Was there de-escalation of care discussed even if they declined? (Discuss DNR or withdrawal of care, Hospice)? @ -No What co-morbidities impacted this encounter? (DM, HTN, Smoking, COPD, CAD, Cancer, CVA, Hep., AIDS, mental health diagnosis, sleep apnea, morbid obesity)? @No Was patient admitted / discharged? @ -Discharged Undiagnosed new problem with uncertain prognosis? @ -None Drug Therapy requiring intensive monitoring for toxicity (Heparin, Nitro, Insulin, Cardizem)? @ -None Were any procedures done? @ -None Diagnosis/symptom? @ -Acute sinusitis Acute, or Chronic, or Acute on Chronic? @ -Acute Uncomplicated (without systemic symptoms) or Complicated (systemic symptoms)? @ -Uncomplicated Side effects of treatment? @ -None Exacerbation, Progression, or Severe Exacerbation] @ -No Poses a threat to life or bodily function? @ -No - Lab Data Lab Results 08/01/22 08/01/22 Range/Units 22:24 22:24 Influenza Type A (PCR) Not Detected (Not Detectd) Influenza Type B (PCR) Not Detected (Not Detectd) RSV (PCR) Not Detected (Not Detectd) SARS-CoV-2 (PCR) Not Detected (Not Detectd) Group A Strep (PCR) NOT DETECTED (Not Detectd) Disposition Clinical Impression: Pharyngitis, Sinusitis Disposition: HOME SELF-CARE Condition: Stable Instructions (If sedation given, give patient instructions): Sinusitis (ED) Additional Instructions: Increase fluids. Consider an [id number] decongestant. Use nasal spray once in each nostril daily for 5 days. Take antibiotic as prescribed. May take Tylenol or Motrin as needed for fever control. Follow-up with your PCP for a recheck as needed. Return to the emergency department with any new, worsening, or concerning symptoms. Prescriptions: Amoxic-Pot Clav 875-125Mg [Augmentin 875-125] 1 tab PO BID 7 Days #14 tab Fluticasone Nasal [place] [Flonase Nasal [place]] 2 spray EA NOSTRIL DAILY 5 Days #16 gm Is patient prescribed a controlled substance at d/c from ED?: No Referrals: Valdemar Vo DO [Primary Care Provider] - 1-2 days Time of Disposition: 00:24
== END 2022-08-02 00:32 | disposition home or self-care (01) ==
LOC: EC 21:43
DX: J32.9 Chronic sinusitis, unspecified (principal); J02.9 Acute pharyngitis, unspecified; F17.200 Nicotine dependence, unspecified, uncomplicated; F12.90 Cannabis use, unspecified, uncomplicated; Z91.040 Latex allergy status; Z20.822 Contact with and (suspected) exposure to COVID-19
CPT/HCPCS: 87651; 87636; 99283; J1100

== ENCOUNTER 2022-08-03 09:16 | Emergency (ER) | payer OTHER ==
[2022-08-03 09:25] VITALS: BP 115/78; PULSE 73; RESP 20; TEMP 98.7
--- NOTE | 2022-08-03 09:34 | ED ---
ENT HPI - General Chief complaint: ENT Stated complaint: Ear infection Time Seen by Provider: 08/03/22 09:33 Source: patient, RN notes reviewed Mode of arrival: ambulatory Limitations: no limitations - History of Present Illness Initial comments: 27-year-old female presents emergency Department chief complaint of left ear pain. Patient states she was recently here for upper respiratory infection. Patient states that she started having ear pain. Patient states her congestion is improving. Patient complains of fever. Patient offers no other complaints. - Related Data Home Medications Medication Instructions Recorded Confirmed Albuterol Sulfate [Ventolin HFA] 2 puff INHALATION RT-Q4H PRN 05/06/21 05/14/21 Previous Rx's Medication Instructions Recorded Amoxic-Pot Clav 875-125Mg 1 tab PO BID 7 Days #14 tab 08/02/22 [Augmentin 875-125] Fluticasone Nasal [place] [Flonase 2 spray EA NOSTRIL DAILY 5 Days 08/02/22 Nasal [place]] #16 gm Amoxicillin 875 mg PO Q12HR #20 tablet 08/03/22 predniSONE [Deltasone] 20 mg PO BID #10 tab 08/03/22 Allergies Allergy/AdvReac Type Severity Reaction Status Date / Time latex Allergy Unknown Verified 08/03/22 21:19 Review of Systems ROS Statement: Those systems with pertinent positive or pertinent negative responses have been documented in the HPI. ROS Other: All systems not noted in ROS Statement are negative. Past Medical History Past Medical History: No Reported History Additional Past Medical History / Comment(s): cysts History of Any Multi-Drug Resistant Organisms: None Reported Past Surgical History: No Surgical Hx Reported Additional Past Surgical History / Comment(s): I&D of left and right armpits where cysts were present. Past Anesthesia/Blood Transfusion Reactions: No Reported Reaction Past Psychological History: No Psychological Hx Reported Smoking Status: Current every day smoker Past Alcohol Use History: Occasional Past Drug Use History: Marijuana General Exam Limitations: no limitations General appearance: alert, in no apparent distress Head exam: Present: atraumatic, normocephalic, normal inspection Eye exam: Present: normal appearance, PERRL, EOMI. Absent: scleral icterus, conjunctival injection, periorbital swelling ENT exam: Present: normal oropharynx, mucous membranes moist. Absent: TM's normal bilaterally (Left TM erythematous) Neck exam: Present: normal inspection, full ROM. Absent: tenderness, meningismus, lymphadenopathy Respiratory exam: Present: normal lung sounds bilaterally. Absent: respiratory distress, wheezes, rales, rhonchi, stridor Cardiovascular Exam: Present: regular rate, normal rhythm, normal heart sounds. Absent: systolic murmur, diastolic murmur, rubs, gallop, clicks Course Vital Signs 08/03/22 09:23 Temperature 98.7 F Pulse Rate 73 Respiratory 20 Rate Blood Pressure 115/78 O2 Sat by Pulse 99 Oximetry Medical Decision Making - Medical Decision Making Was pt. sent in by a medical professional or institution? @ -no Did you speak to anyone other than the patient for history? @ -no Did you review nursing and triage notes? @ -agree and reviewed Were old charts reviewed? @ -no Differential Diagnosis? @ -Otitis media, otitis externa, mastoiditis, station tube dysfunction, this list is not all-inclusive EKG interpreted by me (3pts min.)? @ -no X-rays interpreted by me (1pt min.)? @ -no CT interpreted by me (1pt min.)? @ -no U/S interpreted by me (1pt. min.)? @ -no What testing was considered but not performed? (CT, X-rays, U/S, labs)? Why? @ no What meds were considered but not given? Why? @ -no Did you discuss the management of the patient with other professionals? @ -no Did you reconcile home meds? @ -no Was smoking cessation discussed for >3mins.? @ -no Was critical care preformed (if so, how long)? @ -no Were there social determinants of health that impacted care today? How? (Homelessness, low income, unemployed, alcoholism, drug addiction, transportation, low edu. Level, literacy, decrease access to med. care, custodial, rehab)? @ -no Was there de-escalation of care discussed even if they declined? (Discuss DNR or withdrawal of care, Hospice)? @ -no What co-morbidities impacted this encounter? (DM, HTN, Smoking, COPD, CAD, Cancer, CVA, Hep., AIDS, mental health diagnosis, sleep apnea, morbid obesity)? @ -no Was patient admitted / discharged? @ -discharged Undiagnosed new problem with uncertain prognosis? @ -No Drug Therapy requiring intensive monitoring for toxicity (Heparin, Nitro, Insulin, Cardizem)? @ -no Were any procedures done? @ -no Diagnosis/symptom? @ -Left otitis media Acute, or Chronic, or Acute on Chronic? @ -Acute Uncomplicated (without systemic symptoms) or Complicated (systemic symptoms)? @ -Uncomplicated Side effects of treatment? @ -no Exacerbation, Progression, or Severe Exacerbation] @ -no Poses a threat to life or bodily function? @ -No Disposition Clinical Impression: Left otitis media Disposition: HOME SELF-CARE Condition: Stable Instructions (If sedation given, give patient instructions): Earache (ED) Additional Instructions: Please return to the Emergency Department if symptoms worsen or any other concerns. Prescriptions: Amoxicillin 875 mg PO Q12HR #20 tablet Is patient prescribed a controlled substance at d/c from ED?: No Referrals: Valdemar Vo DO [Primary Care Provider] - 1-2 days Time of Disposition: 09:34
== END 2022-08-03 09:40 | disposition home or self-care (01) ==
LOC: EC 09:16
DX: H66.92 Otitis media, unspecified, left ear (principal); F17.200 Nicotine dependence, unspecified, uncomplicated; F12.90 Cannabis use, unspecified, uncomplicated; Z91.040 Latex allergy status
CPT/HCPCS: 99282

== ENCOUNTER 2022-08-03 20:54 | Emergency (ER) | payer OTHER ==
[2022-08-03 21:19] VITALS: RESP 16
[2022-08-03] MEDS ORDERED: dexAMETHasone ORAL SOLUTION 4 MG/ML VIAL PO ONE (22:19)
[2022-08-03] MEDS ORDERED: LIDOCAINE VISCOUS 2% 15 ML CUP MUCOUS MEM ONE (22:19)
--- NOTE | 2022-08-03 22:21 | ED ---
ENT HPI - General Chief complaint: ENT Stated complaint: Sore throat, swelling, Ear Infection Time Seen by Provider: 08/03/22 21:45 Source: patient Mode of arrival: ambulatory Limitations: no limitations - History of Present Illness Initial comments: 27-year-old female with no reported past history of presents for the third time for reevaluation of left ear pain and sore throat. Patient was here on [place]. She was diagnosed with viral pharyngitis. She was given a prescription for Augmentin for which she filled and started taking. She then presented earlier today for evaluation of left ear pain. She was diagnosed with otitis media and was prescribed amoxicillin. She also picked up this medication. She has been taking them as directed however reports to worsening sore throat. States that she was given steroids in the emergency department on [place] and this did help her symptoms. She denies any fevers. No nausea or vomiting. No difficulty swallowing. No sick contacts with similar symptoms. No other alleviating, Percepting or modifying factors - Related Data Home Medications Medication Instructions Recorded Confirmed Albuterol Sulfate [Ventolin HFA] 2 puff INHALATION RT-Q4H PRN 05/06/21 05/14/21 Previous Rx's Medication Instructions Recorded Amoxic-Pot Clav 875-125Mg 1 tab PO BID 7 Days #14 tab 08/02/22 [Augmentin 875-125] Fluticasone Nasal [place] [Flonase 2 spray EA NOSTRIL DAILY 5 Days 08/02/22 Nasal [place]] #16 gm Amoxicillin 875 mg PO Q12HR #20 tablet 08/03/22 predniSONE [Deltasone] 20 mg PO BID #10 tab 08/03/22 Allergies Allergy/AdvReac Type Severity Reaction Status Date / Time latex Allergy Unknown Verified 08/03/22 21:19 Review of Systems ROS Statement: Those systems with pertinent positive or pertinent negative responses have been documented in the HPI. ROS Other: All systems not noted in ROS Statement are negative. Past Medical History Past Medical History: No Reported History Additional Past Medical History / Comment(s): cysts, ear infection 08/03/22 History of Any Multi-Drug Resistant Organisms: None Reported Past Surgical History: No Surgical Hx Reported Additional Past Surgical History / Comment(s): I&D of left and right armpits where cysts were present. Past Anesthesia/Blood Transfusion Reactions: No Reported Reaction Past Psychological History: No Psychological Hx Reported Smoking Status: Current every day smoker Past Alcohol Use History: Occasional Past Drug Use History: Marijuana General Exam Limitations: no limitations General appearance: alert, in no apparent distress Head exam: Present: atraumatic, normocephalic, normal inspection Eye exam: Present: normal appearance, PERRL, EOMI. Absent: scleral icterus, conjunctival injection, periorbital swelling ENT exam: Present: mucous membranes moist, other (left TM is erythematous) Neck exam: Present: normal inspection. Absent: tenderness, meningismus, lymphadenopathy Respiratory exam: Present: normal lung sounds bilaterally. Absent: respiratory distress, wheezes, rales, rhonchi, stridor Cardiovascular Exam: Present: regular rate, normal rhythm, normal heart sounds. Absent: systolic murmur, diastolic murmur, rubs, gallop, clicks GI/Abdominal exam: Present: soft, normal bowel sounds. Absent: distended, tenderness, guarding, rebound, rigid Extremities exam: Present: normal inspection, full ROM, normal capillary refill. Absent: tenderness, pedal edema, joint swelling, calf tenderness Back exam: Present: normal inspection Neurological exam: Present: alert, oriented X3, CN II-XII intact Psychiatric exam: Present: normal affect, normal mood Skin exam: Present: warm, dry, intact, normal color. Absent: rash Course Vital Signs 08/03/22 08/03/22 08/03/22 21:16 21:29 22:45 Temperature 97.8 F 97.9 F 98.2 F Pulse Rate 66 78 72 Respiratory 16 16 16 Rate Blood Pressure 108/74 117/52 118/74 O2 Sat by Pulse 97 99 99 Oximetry Medical Decision Making - Medical Decision Making Was pt. sent in by a medical professional or institution? @ -No Did you speak to anyone other than the patient for history? @ -No Did you review nursing and triage notes? @ -Yes and I agree Were old charts reviewed? @ -2 previous ER visits Differential Diagnosis? @ -viral pharyngitis, strep pharyngitis, otitis media, otitis externa, URI EKG interpreted by me (3pts min.)? @ -No X-rays interpreted by me (1pt min.)? @ -No CT interpreted by me (1pt min.)? @ -No U/S interpreted by me (1pt. min.)? @ -No What testing was considered but not performed? (CT, X-rays, U/S, labs)? Why? @ None What meds were considered but not given? Why? @ -No Did you discuss the management of the patient with other professionals? @ -No Did you reconcile home meds? @ -No Was smoking cessation discussed for >3mins.? @ -No Was critical care preformed (if so, how long)? @ -No Were there social determinants of health that impacted care today? How? (Homelessness, low income, unemployed, alcoholism, drug addiction, transportation, low edu. Level, literacy, decrease access to med. care, senior care, rehab)? @ None Was there de-escalation of care discussed even if they declined? (Discuss DNR or withdrawal of care, Hospice)? @ None What co-morbidities impacted this encounter? (DM, HTN, Smoking, COPD, CAD, Cancer, CVA, Hep., AIDS, mental health diagnosis, sleep apnea, morbid obesity)? @ -None Was patient admitted / discharged? @ - Upon arrival patient is placed in room 25. A thorough history and physical exam is performed. I did review the patient's previous swabs. States that she did have improvement in her symptoms with Decadron. Patient given a dose of Decadron in the emergency room and and will be discharged home with prescription for prednisone. She is to stop taking the amoxicillin and take the Augmentin only. Follow up with her doctor in 2-4 days and return for any new or worsening symptoms. Patient is agreeable to the treatment plan and she is alert stable condition Undiagnosed new problem with uncertain prognosis? @ -No Drug Therapy requiring intensive monitoring for toxicity (Heparin, Nitro, Insulin, Cardizem)? @ No Were any procedures done? @ No Diagnosis/symptom? @ -acute otitis media, acute otitis externa Acute, or Chronic, or Acute on Chronic? @ -acute Uncomplicated (without systemic symptoms) or Complicated (systemic symptoms)? @ -uncomplicated Side effects of treatment? @ None Exacerbation, Progression, or Severe Exacerbation] @ No Poses a threat to life or bodily function? @ No Disposition Clinical Impression: Left otitis media, Pharyngitis Disposition: HOME SELF-CARE Condition: Stable Instructions (If sedation given, give patient instructions): Pharyngitis (ED), Ear Infection (ED) Additional Instructions: Take the amoxicillinclav antibiotic as directed. Start taking the steroids tomorrow. Follow-up with your doctor and return for any new or worsening symptoms Prescriptions: predniSONE [Deltasone] 20 mg PO BID #10 tab Is patient prescribed a controlled substance at d/c from ED?: No Referrals: Valdemar Vo DO [Primary Care Provider] - 1-2 days Time of Disposition: 22:21
[2022-08-03 22:46] VITALS: BP 118/74; PULSE 72; TEMP 98.2
== END 2022-08-03 22:46 | disposition home or self-care (01) ==
LOC: EC 20:54
DX: H66.92 Otitis media, unspecified, left ear (principal); J02.9 Acute pharyngitis, unspecified; F17.200 Nicotine dependence, unspecified, uncomplicated; F12.90 Cannabis use, unspecified, uncomplicated; Z91.040 Latex allergy status
CPT/HCPCS: 99282; J8540

== ENCOUNTER 2023-12-25 21:14 | Emergency (ER) | payer SELFPAY ==
[2023-12-25 21:26] VITALS: RESP 18; TEMP 98.3
--- NOTE | 2023-12-26 03:45 | ED ---
ENT HPI - General Chief complaint: ENT Stated complaint: Throat Swelling and pain Time Seen by Provider: 12/26/23 01:18 Source: patient Mode of arrival: ambulatory Limitations: no limitations - History of Present Illness Initial comments: 28-year-old female presented to the ED with complaints of sore throat and cough onset 5 days ago. No difficulty breathing. No trouble swallowing. No fever or chills. Has been using Excedrin for her symptoms with no relief. No chest pain or shortness of breath. No other complaints at this time. - Related Data Home Medications Medication Instructions Recorded Confirmed Albuterol Sulfate [Ventolin HFA] 2 puff INHALATION RT-Q4H PRN 05/06/21 05/14/21 Previous Rx's Medication Instructions Recorded Amoxic-Pot Clav 875-125Mg 1 tab PO BID 7 Days #14 tab 08/02/22 [Augmentin 875-125] Fluticasone Nasal [place] [Flonase 2 spray EA NOSTRIL DAILY 5 Days 08/02/22 Nasal [place]] #16 gm Amoxicillin 875 mg PO Q12HR #20 tablet 08/03/22 predniSONE [Deltasone] 20 mg PO BID #10 tab 08/03/22 Acetaminophen Tab [Tylenol] 500 mg PO Q6H #30 tablet 12/26/23 Ibuprofen 600 mg PO Q6H #30 tab 12/26/23 Allergies Allergy/AdvReac Type Severity Reaction Status Date / Time latex Allergy Unknown Verified 08/03/22 21:19 Review of Systems ROS Statement: Those systems with pertinent positive or pertinent negative responses have been documented in the HPI. ROS Other: All systems not noted in ROS Statement are negative. Past Medical History Past Medical History: No Reported History Additional Past Medical History / Comment(s): cysts, ear infection 08/03/22 History of Any Multi-Drug Resistant Organisms: None Reported Past Surgical History: No Surgical Hx Reported Additional Past Surgical History / Comment(s): I&D of left and right armpits where cysts were present. Past Anesthesia/Blood Transfusion Reactions: No Reported Reaction Past Psychological History: No Psychological Hx Reported Smoking Status: Current every day smoker Past Alcohol Use History: Occasional Past Drug Use History: Marijuana General Exam Limitations: no limitations General appearance: alert, in no apparent distress Eye exam: Present: normal appearance ENT exam: Present: normal oropharynx Neck exam: Present: normal inspection Respiratory exam: Present: normal lung sounds bilaterally Cardiovascular Exam: Present: regular rate GI/Abdominal exam: Present: soft Neurological exam: Present: alert, oriented X3 Skin exam: Present: warm, dry Course Vital Signs 12/25/23 21:18 Temperature 98.3 F Pulse Rate 84 Respiratory 18 Rate Blood Pressure 118/76 O2 Sat by Pulse 99 Oximetry Medical Decision Making - Medical Decision Making Was pt. sent in by a medical professional or institution (, PA, SPINNING MACHINE TENDER, urgent care, hospital, or fdc...) When possible be specific @ -No Did you speak to anyone other than the patient for history (EMS, parent, family, police, friend...)? What history was obtained from this source @ -No Did you review nursing and triage notes (agree or disagree)? Why? @ -I reviewed and agree with nursing and triage notes Were old charts reviewed (outside hosp., previous admission, EMS record, old EKG, old radiological studies, urgent care reports/EKG's, fdc records)? Report findings @ -No old charts were reviewed Differential Diagnosis (chest pain, altered mental status, abdominal pain women, abdominal pain men, vaginal bleeding, weakness, fever, dyspnea, syncope, headache, dizziness, GI bleed, back pain, seizure, CVA, palpatations, mental health, musculoskeletal)? @ -Differential Dyspnea: Coronary syndrome, arrhythmia, tamponade, asthma, COPD, pulmonary embolism, pneumonia, pneumothorax, pulmonary effusion, anaphylaxis, diabetic ketoacidosis, flailed chest, pulmonary contusion, diaphragmatic rupture, anemia, neuromuscular, this is not meant to be an all-inclusive list. EKG interpreted by me (3pts min.). @ -None X-rays interpreted by me (1pt min.). @ -None done CT interpreted by me (1pt min.). @ -None done U/S interpreted by me (1pt. min.). @ -None done What testing was considered but not performed or refused? (CT, X-rays, U/S, la bs)? Why? @ -None What meds were considered but not given or refused? Why? @ -None Did you discuss the management of the patient with other professionals (professionals i.e. , [employer], SPINNING MACHINE TENDER, lab, RT, psych nurse, high school social studies teacher, buoy tender, teacher, prison officer, rn case management)? Give summary @ -No Was smoking cessation discussed for >3mins.? @ -No Was critical care preformed (if so, how long)? @ -No Were there social determinants of health that impacted care today? How? (Homelessness, low income, unemployed, alcoholism, drug addiction, transportation, low edu. Level, literacy, decrease access to med. care, [facility], rehab)? @ -No Was there de-escalation of care discussed even if they declined (Discuss DNR or withdrawal of care, Hospice)? DNR status @ -No What co-morbidities impacted this encounter? (DM, HTN, Smoking, COPD, CAD, Cancer, CVA, ARF, Chemo, Hep., AIDS, mental health diagnosis, sleep apnea, morbid obesity)? @ -None Was patient admitted / discharged? Hospital course, mention meds given and route, prescriptions, significant lab abnormalities, going to OR and other pertinent info. @ -Discharge 28-year-old female presenting to the ED with 5 days of sore throat and cough. Vital signs stable, afebrile. Exam benign. Serology panel reviewed. Negative for strep, COVID, RSV, influenza. Symptoms likely viral in nature. Discharged home in stable condition with prescriptions for Motrin and Tylenol. Advise close follow-up with her PCP. Discussed return precautions with patient who verbalized agreement. Undiagnosed new problem with uncertain prognosis? @ -No Drug Therapy requiring intensive monitoring for toxicity (Heparin, Nitro, Insulin, Cardizem)? @ -No Were any procedures done? @ -No Diagnosis/symptom? @ -Viral URI Acute, or Chronic, or Acute on Chronic? @ -Acute Uncomplicated (without systemic symptoms) or Complicated (systemic symptoms)? @ -Uncomplicated Side effects of treatment? @ -No Exacerbation, Progression, or Severe Exacerbation? @ -No Poses a threat to life or bodily function? How? (Chest pain, [place], [place], pneumonia, PE, COPD, DKA, ARF, appy, cholecystitis, CVA, Diverticulitis, Homicidal, Suicidal, threat to staff... and all critical care pts) @ -No - Lab Data Lab Results 12/25/23 12/26/23 Range/Units 21:20 01:15 Influenza Type A (PCR) Not Detected (Not Detectd) Influenza Type B (PCR) Not Detected (Not Detectd) RSV (PCR) Not Detected (Not Detectd) SARS-CoV-2 (PCR) Not Detected (Not Detectd) Group A Strep (PCR) NOT DETECTED (Not Detectd) Disposition Clinical Impression: Viral URI Disposition: HOME SELF-CARE Condition: Good Instructions (If sedation given, give patient instructions): Upper Respiratory Infection (ED) Additional Instructions: Please return to the Emergency Department if symptoms worsen or any other concerns. Please follow-up with your primary care provider. Prescriptions: Ibuprofen 600 mg PO Q6H #30 tab Acetaminophen Tab [Tylenol] 500 mg PO Q6H #30 tablet Is patient prescribed a controlled substance at d/c from ED?: No Referrals: Valdemar Vo DO [Primary Care Provider] - 1-2 days Time of Disposition: 03:48
[2023-12-26] MEDS ORDERED: IBUPROFEN 600 MG STARTER PACK 4 TAB BTL PO STA (03:48)
[2023-12-26 04:00] VITALS: BP 109/8; PULSE 68
== END 2023-12-26 03:58 | disposition home or self-care (01) ==
LOC: EC 21:14
DX: J06.9 Acute upper respiratory infection, unspecified (principal); F12.90 Cannabis use, unspecified, uncomplicated; F17.200 Nicotine dependence, unspecified, uncomplicated; Z91.040 Latex allergy status
CPT/HCPCS: 87636; 87651; 99283